=== PATIENT | female | born 1980 | race Hispanic/Latino ===

== ENCOUNTER → 2017-12-30 | Outpatient (CLI) | payer BC ==
[~2017-12-30] MED LIST: LIDOCAINE VISC 2% SOLN 15 ML UDC ONE
== END ==
LOC: WCC 09:28
PROVIDERS: ATTEND Family Medicine Adult Medicine
DX: T81.89XA Other complications of procedures, not elsewhere classified, initial encounter (principal); M96.89 Other intraoperative and postprocedural complications and disorders of the musculoskeletal system
CPT/HCPCS: 87071; 87075; 87205

== ENCOUNTER → 2018-01-05 | Outpatient (CLI) | payer BC ==
--- NOTE | 2018-01-05 16:42 | Diagnostic Imaging Report ---
PROCEDURE:LIMITED ABDOMINAL ULTRASOUND COMPARISON:None. INDICATIONS:Complications of Procedure FINDINGS: Focused sonographic evaluation of the anterior abdominal wall was performed in the transverse and sagittal planes in the region of the postoperative site. The fascia is intact. No focal drainable fluid collection is noted along the incision or the beneath the open skin wound. CONCLUSION: No acute sonographic abnormality. Dictated by: Sabino Wren M.D. on 01/05/2018 at 16:43 Electronically approved by: Sabino Wren M.D. on 01/05/2018 at 16:43
== END ==
LOC: US 15:05
PROVIDERS: ATTEND Family Medicine Adult Medicine
DX: T81.89XA Other complications of procedures, not elsewhere classified, initial encounter (principal)
CPT/HCPCS: 76705

== ENCOUNTER → 2018-01-11 | Outpatient (CLI) | payer BC | LOC: WCC 09:14 | PROVIDERS: ATTEND Family Medicine Adult Medicine | DX: T81.89XA Other complications of procedures, not elsewhere classified, initial encounter (principal); M96.89 Other intraoperative and postprocedural complications and disorders of the musculoskeletal system ==

== ENCOUNTER → 2018-01-14 | Outpatient (CLI) | payer BC | LOC: WCC 11:38 | PROVIDERS: ATTEND Family Medicine Adult Medicine | DX: T81.89XA Other complications of procedures, not elsewhere classified, initial encounter (principal); M96.89 Other intraoperative and postprocedural complications and disorders of the musculoskeletal system ==

== ENCOUNTER → 2018-01-20 | Outpatient (CLI) | payer BC ==
[~2018-01-20] MED LIST changes: -LIDOCAINE VISC 2% SOLN 15 ML UDC ONE; +LIDOCAINE/PRILOCAINE 2.5-2.5% KIT ONE
== END ==
LOC: WCC 13:40
PROVIDERS: ATTEND Family Medicine Adult Medicine
DX: T81.89XA Other complications of procedures, not elsewhere classified, initial encounter (principal); M96.89 Other intraoperative and postprocedural complications and disorders of the musculoskeletal system

== ENCOUNTER → 2018-01-21 | Outpatient (CLI) | payer BC | LOC: WCC 11:33 | PROVIDERS: ATTEND Family Medicine Adult Medicine | DX: T81.89XA Other complications of procedures, not elsewhere classified, initial encounter (principal); M96.89 Other intraoperative and postprocedural complications and disorders of the musculoskeletal system ==

== ENCOUNTER → 2018-01-25 | Outpatient (CLI) | payer BC | LOC: WCC 09:09 | PROVIDERS: ATTEND Family Medicine Adult Medicine | DX: T81.89XA Other complications of procedures, not elsewhere classified, initial encounter (principal); M96.89 Other intraoperative and postprocedural complications and disorders of the musculoskeletal system ==

== ENCOUNTER → 2018-01-28 | Outpatient (CLI) | payer BC | LOC: WCC 12:32 | PROVIDERS: ATTEND Family Medicine Adult Medicine | DX: T81.89XA Other complications of procedures, not elsewhere classified, initial encounter (principal); M96.89 Other intraoperative and postprocedural complications and disorders of the musculoskeletal system ==

== ENCOUNTER → 2018-02-01 | Outpatient (CLI) | payer BC | LOC: WCC 09:47 | PROVIDERS: ATTEND Family Medicine Adult Medicine ==

== ENCOUNTER → 2018-02-04 | Outpatient (CLI) | payer BC | LOC: WCC 13:36 | PROVIDERS: ATTEND Family Medicine Adult Medicine | DX: T81.89XA Other complications of procedures, not elsewhere classified, initial encounter (principal); M96.89 Other intraoperative and postprocedural complications and disorders of the musculoskeletal system ==

== ENCOUNTER → 2018-02-08 | Outpatient (CLI) | payer BC | LOC: WCC 09:34 | PROVIDERS: ATTEND Family Medicine Adult Medicine | DX: T81.89XA Other complications of procedures, not elsewhere classified, initial encounter (principal); M96.89 Other intraoperative and postprocedural complications and disorders of the musculoskeletal system ==

== ENCOUNTER → 2018-02-11 | Outpatient (CLI) | payer BC | LOC: WCC 14:08 | PROVIDERS: ATTEND Family Medicine Adult Medicine | DX: T81.89XA Other complications of procedures, not elsewhere classified, initial encounter (principal); M96.89 Other intraoperative and postprocedural complications and disorders of the musculoskeletal system ==

== ENCOUNTER → 2018-02-15 | Outpatient (CLI) | payer BC | LOC: WCC 09:29 | PROVIDERS: ATTEND Family Medicine Adult Medicine | DX: T81.89XA Other complications of procedures, not elsewhere classified, initial encounter (principal); M96.89 Other intraoperative and postprocedural complications and disorders of the musculoskeletal system ==

== ENCOUNTER → 2018-02-18 | Outpatient (CLI) | payer BC | LOC: WCC 13:27 | PROVIDERS: ATTEND Family Medicine Adult Medicine | DX: T81.89XA Other complications of procedures, not elsewhere classified, initial encounter (principal); M96.89 Other intraoperative and postprocedural complications and disorders of the musculoskeletal system ==

== ENCOUNTER → 2018-02-22 | Outpatient (CLI) | payer BC | LOC: WCC 09:18 | PROVIDERS: ATTEND Family Medicine Adult Medicine | DX: T81.89XA Other complications of procedures, not elsewhere classified, initial encounter (principal); M96.89 Other intraoperative and postprocedural complications and disorders of the musculoskeletal system ==

== ENCOUNTER → 2018-02-25 | Outpatient (CLI) | payer BC | LOC: WCC 14:25 | PROVIDERS: ATTEND Family Medicine Adult Medicine | DX: T81.89XA Other complications of procedures, not elsewhere classified, initial encounter (principal); M96.89 Other intraoperative and postprocedural complications and disorders of the musculoskeletal system ==

== ENCOUNTER → 2018-03-01 | Outpatient (CLI) | payer BC | LOC: WCC 10:11 | PROVIDERS: ATTEND Family Medicine Adult Medicine | DX: T81.89XA Other complications of procedures, not elsewhere classified, initial encounter (principal); M96.89 Other intraoperative and postprocedural complications and disorders of the musculoskeletal system ==

== ENCOUNTER → 2018-03-08 | Outpatient (CLI) | payer BC | LOC: WCC 11:31 | PROVIDERS: ATTEND Family Medicine Adult Medicine | DX: T81.89XA Other complications of procedures, not elsewhere classified, initial encounter (principal); M96.89 Other intraoperative and postprocedural complications and disorders of the musculoskeletal system ==

== ENCOUNTER 2022-08-04 22:29 | Emergency (ER) | payer BC, OTHER ==
[~2022-08-04] VITALS: Ht 154.9 cm; Wt 97.5 kg
[2022-08-04 23:00] VITALS: BP 176/104
== END 2022-08-04 23:00 | disposition home or self-care (01) ==
LOC: FSED 22:43
DX: T81.30XA Disruption of wound, unspecified, initial encounter (principal)
CPT/HCPCS: 99282

== ENCOUNTER → 2022-09-24 | Outpatient (CLI) | payer BC | LOC: WCC 11:39 | PROVIDERS: ATTEND Family Medicine Adult Medicine | DX: T81.89XA Other complications of procedures, not elsewhere classified, initial encounter (principal); M96.89 Other intraoperative and postprocedural complications and disorders of the musculoskeletal system; I10 Essential (primary) hypertension ==

== ENCOUNTER → 2022-09-28 | Outpatient (CLI) | payer BC | LOC: WCC 12:53 | PROVIDERS: ATTEND Family Medicine Adult Medicine | DX: T81.89XA Other complications of procedures, not elsewhere classified, initial encounter (principal); M96.89 Other intraoperative and postprocedural complications and disorders of the musculoskeletal system; I10 Essential (primary) hypertension ==

== ENCOUNTER → 2022-10-01 | Outpatient (CLI) | payer BC | LOC: WCC 13:10 | PROVIDERS: ATTEND Family Medicine Adult Medicine | DX: T81.89XA Other complications of procedures, not elsewhere classified, initial encounter (principal); M96.89 Other intraoperative and postprocedural complications and disorders of the musculoskeletal system; I10 Essential (primary) hypertension ==

== ENCOUNTER → 2022-10-05 | Outpatient (CLI) | payer BC | LOC: WCC 11:55 | PROVIDERS: ATTEND Family Medicine Adult Medicine | DX: T81.89XA Other complications of procedures, not elsewhere classified, initial encounter (principal); M96.89 Other intraoperative and postprocedural complications and disorders of the musculoskeletal system; I10 Essential (primary) hypertension ==

== ENCOUNTER → 2022-10-08 | Outpatient (CLI) | payer BC | LOC: WCC 14:11 | PROVIDERS: ATTEND Family Medicine Adult Medicine | DX: T81.89XA Other complications of procedures, not elsewhere classified, initial encounter (principal); M96.89 Other intraoperative and postprocedural complications and disorders of the musculoskeletal system; I10 Essential (primary) hypertension ==

== ENCOUNTER → 2022-10-15 | Outpatient (CLI) | payer OTHER ==
[~2022-10-15] MED LIST changes: +LIDOCAINE VISC 2% SOLN 15 ML UDC ONE; -LIDOCAINE/PRILOCAINE 2.5-2.5% KIT ONE
== END ==
LOC: WCC 12:24
PROVIDERS: ATTEND Family Medicine Adult Medicine
DX: T81.89XA Other complications of procedures, not elsewhere classified, initial encounter (principal); M96.89 Other intraoperative and postprocedural complications and disorders of the musculoskeletal system; I10 Essential (primary) hypertension

== ENCOUNTER → 2022-10-22 | Outpatient (CLI) | payer BC, OTHER | LOC: WCC 14:27 | PROVIDERS: ATTEND Family Medicine Adult Medicine | DX: T81.89XA Other complications of procedures, not elsewhere classified, initial encounter (principal); M96.89 Other intraoperative and postprocedural complications and disorders of the musculoskeletal system; I10 Essential (primary) hypertension ==

== ENCOUNTER → 2022-11-05 | Outpatient (CLI) | payer BC | LOC: WCC 13:50 | PROVIDERS: ATTEND Family Medicine Adult Medicine | DX: T81.89XA Other complications of procedures, not elsewhere classified, initial encounter (principal); M96.89 Other intraoperative and postprocedural complications and disorders of the musculoskeletal system; I10 Essential (primary) hypertension ==

== ENCOUNTER → 2022-11-12 | Outpatient (CLI) | payer BC, OTHER | LOC: WCC 12:56 | PROVIDERS: ATTEND Family Medicine Adult Medicine | DX: T81.89XA Other complications of procedures, not elsewhere classified, initial encounter (principal); M96.89 Other intraoperative and postprocedural complications and disorders of the musculoskeletal system; I10 Essential (primary) hypertension ==

== ENCOUNTER → 2022-11-26 | Outpatient (CLI) | payer OTHER | LOC: WCC 14:21 | PROVIDERS: ATTEND Family Medicine Adult Medicine | DX: T81.89XD Other complications of procedures, not elsewhere classified, subsequent encounter (principal); M96.89 Other intraoperative and postprocedural complications and disorders of the musculoskeletal system; I10 Essential (primary) hypertension ==

== ENCOUNTER → 2022-12-03 | Outpatient (CLI) | payer BC, OTHER | LOC: WCC 10:53 | PROVIDERS: ATTEND Family Medicine Adult Medicine | DX: M96.89 Other intraoperative and postprocedural complications and disorders of the musculoskeletal system (principal) ==